=== PATIENT | female | born 2000 ===

== ENCOUNTER 2025-05-26 16:04 | Outpatient (REF) | payer MEDICAID, SELFPAY ==
--- OUTSIDE RECORDS SUMMARY | 2025-05-26 14:40 | XMS_ITS | Encounter Summary ---
Author Organization [employer] Address [address] [facility] 7 [place] [address] Care Team Providers Care Sales Representative Wire Rope Name Role Phone Unavailable Primary Care Provider Unavailabl e Reason for Visit * Reason Comments uti symptoms Encounter Details Date Type Department Care Team (Late st Contact Info) Description 05/26/2025 2:40 PM EDT Office Visit [facility] [address] [place] [id number] Gael Schuler MD [address] [place] [address] UTI symptoms Social History Tobacco Use Types Packs/Day Years Used Date Smoking Tobacco: Never Smokeless Tobacco: Never Tobacco Cessation:Counseling Given: Not Answered Comments Unknown Sex and Gender Information Value Date Recorded Sex Assigned at Female 05/26/2025 1:43 PM EDT Legal Sex Female 1:41 PM EDT Gender Identity Female 05/26/2025 1:43 PM EDT Sexual Orientation Straight 05/26/2025 1: 43 PM EDT documented as of this encounter Last Filed Vital Signs Vital Sign Reading Time Taken Comments Blood Pressure 121/83 05/26/2025 2:07 PM EDT Pulse 75 05/26/2025 2:07 PM EDT Temperature 36.7 C (98.1 F) 05/26/2025 2:07 PM EDT Respiratory Rate 18 05/26/2025 2:07 PM EDT Oxygen Saturation 98% 05/26/2025 2:07 PM EDT Inhaled Oxygen Concentration - - Weight 59.9 kg (132 lb) 05/26/2025 2:07 PM EDT Height - - Body Mass Index - - documented in this encounter Progress Notes * Gael Mcleod MD - 05/26/2025 2:40 PM EDT Subjective Patient ID: Liu Montejo is a 25 y.o. female who presents for uti symptoms. UTI This is a chronic problem. The current episode started in the past 7 days. Associated symptoms include pain. Pertinent negatives include no hematuria. The pain is present in the bladder. Her pain is at a severity of 5/10. Review of Systems Genitourinary: Negative for hematuria. Objective Physical Exam Constitutional: Appearance: Normal appearance. Cardiovascular: Rate and Rhythm: Normal rate. Heart sounds: No murmur heard. Abdominal: General: There is no distension. Palpations: There is no mass. Neurological: General: No focal deficit present. Mental Status: She is alert and oriented to person, place, and time. Psychiatric: Mood and Affect: Mood normal. Behavior: Behavior normal. Assessment/Plan Problem List Items Addressed This Visit None Visit Diagnoses UTI symptoms Symptoms started 1 week ago, complains of chills, suprapubic pain, dysuria and frequency, will start on nitrofurantoin and will send urine for culture Relevant Orders POCT urinalysis dipstick manually resulted (Completed) Culture, Urine, Routine documented in this encounter Plan of Treatment Scheduled Orders Name Type Priority Associated Diagnoses Orde r Schedule Culture, Urine, Routine Microbiology Routine UTI symptoms Ordered: 05/26/2025 documented as of this encounter Procedures Procedure Name Priority Date/Time Associated Diagnosis Comments POCT URINALYSIS DIPSTICK Routine 05/26/2025 2:15 PM EDT UTI symptoms documented in this encounter Results * (ABNORMAL) POCT urinalysis dipstick manually resulted (05/26/2025 2:15 PM EDT) Color, UA Yellow Clarity, UA Clear Glucose, UA Negative Bilirubin, UA Negative Ketones, UA Negative Spec Grav, UA 1.010 Blood, UA Positive(A) Negative, None Detected Comment:Trace- Intact pH, UA 6.5 Protein, UA Negative Urobilinogen, UA 0.2 Leukocytes, UA Few 15(A) Negative, Rare, Trace Comment:small Nitrite, UA Negative Negative, None Detected Urine 05/26/2025 2:15 PM EDT Gael Mcleod MD POINT OF CARE TEST ENTER/EDIT ORDERABLES Final Result documented in this encounter Visit Diagnoses Diagnosis UTI symptoms documented in this encounter
--- OUTSIDE RECORDS SUMMARY | 2025-05-26 16:13 | XMS_ITS | Encounter Summary ---
Author Organization [facility] Address [address] [facility] [address] [place] [address] Phone Care Team Providers Care Resource Management Planner Name Role Phone Pcp, Not Required Primary Care Provider Unavaila ble Encounter Details Date Type Department Care Team (Late st Contact Info) Description 04/04/[address], [place] [address] [place] [address], [address], [address] [place], [place] [id number] Social History Tobacco Use Types Packs/Day Years Used Date Smoking Tobacco: Never Assessed Comments Unknown Sex and Gender Information Value Date Recorded Sex Assigned at Not on file Legal Sex Female 7:43 PM EDT Gender Identity Not on file Sexual Orientation Not on file documented as of this encounter Functional Status * Calculated C-SSRS Risk Score (Lifetime/Recent) Answer Date of Assessment Author No Risk Indicated 04/04/2022 7:50 PM EDT Sherita Zafar RN * [place] Suicide Severity Rating Scale (Screener/Recent Self-Report) Question Answer Date of Assessment Author 1. Wish to be (Past 1 Month) No 04/04/2022 7:50 PM EDT Stephany Harding RN 2. Non-Specific Active Suicidal Thoughts (Past 1 Month) No 04/04/2022 7:50 PM EDT Stephany Harding RN 6. Suicidal Behavior (Lifetime) No 04/04/2022 7:50 PM EDT Stephany Harding RN documented as of this encounter Plan of Treatment Not on file documented as of this encounter Visit Diagnoses Not on filedocumented in this encounter Care Teams Resource Management Planner Relationship Specialty Start Date End Date Pcp, Not Required [address] [place] [address] PCP - General 04/04/22 documented as of this encounter Additional Source Comments The information contained in this document represents components of the legal health record. It is not the complete legal health record.[facility]
--- OUTSIDE RECORDS SUMMARY | 2025-05-26 16:13 | XMS_ITS | Clinical Summary ---
Author Organization [facility] Address [address] [place] [address] Phone Care Team Providers Care Wire Spooler Name Role Phone Pcp, Not Required Primary Care Provider Unavaila ble Medications No known medications Active Problems Problem Noted Date Diagnosed Date Suicidal ideation 04/04/2022 Social History Tobacco Use Types Packs/Day Years Used Date Smoking Tobacco: Never Assessed Education Answer Date Recorded Are you interested in more education? Not on mili e 12/27/2022 Are you concerned about learning? Not on file 12/27/2022 No 12/27/2022 No 12/27/2022 Digital Access Answer Date Recorded No 01/25/2023 No 01/25/2023 No 01/25/2023 Reliable internet access at home? Not on file 01/25/2023 Device with a working camera? Not on file Comments Unknown Sex and Gender Information Value Date Recorded Sex Assigned at Not on file Legal Sex Female 7:43 PM EDT Gender Identity Not on file Sexual Orientation Not on file Last Filed Vital Signs Vital Sign Reading Time Taken Comments Blood Pressure 105/65 04/05/2022 2:06 PM EDT Pulse 70 04/05/2022 2:06 PM EDT Temperature 35.9 C (96.6 F) 04/05/2022 2:06 PM EDT Respiratory Rate 16 04/05/2022 2:06 PM EDT Oxygen Saturation 100% 04/05/2022 2:06 PM EDT Inhaled Oxygen Concentration - - Weight - - Height - - Body Mass Index - - Plan of Treatment Health Maintenance Due Date Last Done Comments Adult Td,Tdap Booster 2001 DEPRESSION SCREENING 2013 SMOKING Hx and SMOKELESS TOB ACCO SCREENING 2014 HPV VACCINES (1 - 3-dose series) 02/23/2016 CHLAMYDIA SCREENING 2017 HEPATITIS C SCREENING 2019 HIV ONE-TIME SCREENING (18-6 5 YEARS) 2019 PAP SMEAR 2022 INFLUENZA VACCINE (#1) 2025 COVID-19 VACCINE ( - 2023-2 5 season) 2025 HEPATITIS A VACCINES Aged Out No long er eligible based on patient's age to complete this topic HIB VACCINES Aged Out No longer eligi ble based on patient's age to complete this topic MENINGOCOCCAL VACCINES (ACWY) Aged Out No longer eligible based on patient's age to complete this topic MENINGOCOCCAL VACCINES (B) Aged Out N o longer eligible based on patient's age to complete this topic PNEUMOCOCCAL VACCINES (0-49 years) Aged Out No longer eligible based on patient's age to complete this topic Medical Devices Not on file Insurance [employer] Member Subscriber Plan / Payer (Ef fective 2022-Present) Name:Liu Kennedy Relation to Subscriber:Self Name:Liu Kennedy Payer ID:[id number] Group ID:Not on file Type:Medicaid Address: [place] [id number] FULL [employer] [facility] S[employer] NET FULL LIMITED [place]ULL [place] [facility] [place] Member Subscriber Plan / Payer (Ef fective 2022-) Name:Liu Kennedy Relation to Subscriber:Self Name:Liu Kennedy Payer ID:[id number] Group ID:Not on file Type:Medicaid Address: [address] SAFETY NET [place]AF[place] NET FULL [facility] LIMITED Member Subscriber Plan / Payer (Ef fective 2022-Present) Name:Liu Kennedy Relation to Subscriber:Self Name:Liu Kennedy Payer ID:[id number] Group ID:Not on file Type:Medicaid Address: [address] FULL Care Teams Wire Spooler Relationship Specialty Start Date End Date Pcp, Not Required [address] [place] [id number] PCP - General 04/04/22 Additional Source Comments The information contained in this document represents components of the legal health record. It is not the complete legal health record.[facility]
--- OUTSIDE RECORDS SUMMARY | 2025-05-26 16:13 | XMS_ITS | Clinical Summary ---
Author Organization [employer] Address [address] [facility] [address] [place] [address] Care Team Providers Care Programming Director Name Role Phone Unavailable Primary Care Provider Unavailabl e Allergies No known active allergies Medications nitrofurantoin, macrocrystal-mo nohydrate, (Macrobid) 100 MG capsule Take 1 capsule (100 mg) by mouth 2 times daily for 5 days. 10 capsule 05/26/2025 Active Encounters Date Type Department Care Team Description 05/26/2025 2:40 PM EDT Office Visit [facility] [address] [place] [address] Gael Schuler MD UTI symptoms 05/26/2025 Travel from Last 3 Months Social History Tobacco Use Types Packs/Day Years Used Date Smoking Tobacco: Never Smokeless Tobacco: Never Tobacco Cessation:Counseling Given: Not Answered Comments Unknown Sex and Gender Information Value Date Recorded Sex Assigned at Female 05/26/2025 1:43 PM EDT Legal Sex Female 1:41 PM EDT Gender Identity Female 05/26/2025 1:43 PM EDT Sexual Orientation Straight 05/26/2025 1: 43 PM EDT Last Filed Vital Signs Vital Sign Reading [...] Health Maintenance Due Date Last Done Comments Depression Screening 2001 HIV Screening 2001 SDOH Screening 2001 Disability Screening 2001 Alcohol/Substance Use Screening 2013 Family Planning (PISQ) 02/23/2016 HPV Vaccines (1 - 3-dose series) 02/23/2016 Hepatitis C Screening 2019 DTaP/Tdap/Td Vaccines (1 - Tdap) 02/23/2020 Hepatitis B Vaccines (1 of 3 - 19+ 3-dose series) 02/23/2020 Pap Smear 2022 COVID-19 Vaccine (1 - 2023-2 5 season) 2025 Influenza Vaccine (#1) 2025 Tobacco Screening 05/26/2026 05/26/2025 Zoster Vaccines (1 of 2) 2051 RSV Patients and Pa tients Aged 60 years or older (1 - 1-dose 75+ series) 02/23/2076 HIB Vaccines Aged Out No longer eligi ble based on patient's age to complete this topic Hepatitis A Vaccines Aged Out No long er eligible based on patient's age to complete this topic IPV Vaccines Aged Out No longer eligi ble based on patient's age to complete this topic Meningococcal B Vaccine Aged Out No l onger eligible based on patient's age to complete this topic Meningococcal Vaccine Aged Out No fernando adam eligible based on patient's age to complete this topic Pneumococcal Vaccine: Pediat rics (0 to 5 Years) and At-Risk Patients (6 to 49) Years Aged Out No longer eligi ble based on patient's age to complete this topic RSV under 20 months Aged Out No longe r eligible based on patient's age to complete this topic Rotavirus Vaccines Aged Out No longer eligible based on patient's age to complete this topic Procedures Procedure Name Priority Date/Time Associated Diagnosis Comments POCT URINALYSIS DIPSTICK Routine 05/26/2025 2:15 PM EDT UTI symptoms from Last 3 Months Results * (ABNORMAL) POCT urinalysis dipstick manually [...] OF CARE TEST ENTER/EDIT ORDERABLES Final Result from Last [address] [facility] LIMITED HSN FULL
--- OUTSIDE RECORDS SUMMARY | 2025-05-26 16:13 | XMS_ITS | Encounter Summary ---
Author Organization [employer] [facility] Address [address] [facility] [address] [place] [address] Care Team Providers Care Sawyer Cork Slabs Name Role Phone Unavailable Primary Care Provider Unavailabl e Encounter Details Date Type Department Care Team (Latest Contact Info) Description 05/26/2025 Travel Social History Tobacco Use Types Packs/Day Years Used Date Smoking Tobacco: Never Smokeless Tobacco: Never Comments Unknown Sex and Gender Information Value Date Recorded Sex Assigned at Female 05/26/2025 1:43 PM EDT Legal Sex Female 1:41 PM EDT Gender Identity Female 05/26/2025 1:43 PM EDT Sexual Orientation Straight 05/26/2025 1: 43 PM EDT documented as of this encounter Plan of Treatment Not on file documented as of this encounter Visit Diagnoses Not on filedocumented in this encounter
== END 2025-05-26 16:05 | disposition home or self-care (01) ==
LOC: HO.HHCLNP 16:04
PROVIDERS: Visit Provider Internal Medicine
DX: R39.9 Unspecified symptoms and signs involving the genitourinary system (principal)
CPT/HCPCS: 87086; 87088; 87186